=== PATIENT | male | born 1960 | race Asian ===

== ENCOUNTER → 2022-10-19 | Outpatient (CLI) | payer SELFPAY ==
[2022-10-19 14:49] LABS: BASOPHILS ABSOLUTE AUTO 0.04 K/mm3 (0.00-0.23); BASOPHILS PERCENT AUTO 1 % (0-2); EOSINOPHILS PERCENT AUTO 2 % (0-6); Hematocrit 42.7 % (37.0-53.0); Hemoglobin 15.8 g/dL (13.5-17.5); IMMATURE GRAN ABSOLUTE AUTO 0.02 K/mm3 (0.00-0.10); IMMATURE GRAN PERCENT AUTO 1 % (0-1); LYMPHOCYTES ABSOLUTE AUTO 1.64 K/mm3 (0.84-5.20); LYMPHOCYTES PERCENT AUTO 40 % (21-46); MONOCYTES ABSOLUTE AUTO 0.32 K/mm3 (0.16-1.47); MONOCYTES PERCENT AUTO 8 % (4-13); Mean Corpuscular HGB 30.4 pg (26.0-34.0); Mean Corpuscular Volume 82 fL (80-100); Mean Platelet Volume 10.2 fL (9.1-12.4); NEUTROPHILS ABSOLUTE AUTO 1.99 K/mm3 (1.96-9.15); NEUTROPHILS PERCENT AUTO 48 % (41-73); Platelet Count 242 K/mm3 (150-400); RDW Coefficient Variation 11.9 % (11.7-14.2); RDW Standard Deviation 35.5 fL (35.1-46.3); White Blood Cell Count 4.11 K/mm3 (4.00-11.30)
[2022-10-19 15:06] LABS: Alanine Aminotransfer (ALT/SGP 39 U/L (12-78); Albumin/Globulin Ratio 1.1 (0.8-1.8); Alk Phos 80 U/L (50-136); Anion Gap 6 mmol/L (6-16); Aspartate Aminotrans (AST/SGOT 23 U/L (12-37); Blood Urea Nitrogen 15 mg/dL (8-24); Bun/Creatinine Ratio 19.5 (12.0-20.0); CO2, Blood 26 mmol/L (21-32); Calcium, Blood 8.6 mg/dL (8.5-10.1); Chloride, Blood 104 mmol/L (98-108); Cholesterol 221 mg/dL (50-200); Creatinine, Blood 0.77 mg/dL (0.60-1.20); Globulin, Blood 3.5 g/dL (2.2-4.0); Glomerular Filtration Rate 101 (60-); Glucose, Blood 221 mg/dL (70-99); HDL Cholesterol 44 mg/dL (>39); LDL/HDL RATIO 3.4; Low Density Lipoprotein Chol 151 mg/dL (0-110); Potassium, Blood 3.9 mmol/L (3.5-5.5); Sodium, Blood 136 mmol/L (136-145); Total Protein, Blood 7.5 g/dL (6.4-8.2); Triglycerides 130 mg/dL (30-160); Very Low Density Lipoprot Chol 26 mg/dL (6-32)
== END | disposition home or self-care (01) ==
LOC: LAB SHORT 12:48
PROVIDERS: Family Medicine
DX: Z13.6 Encounter for screening for cardiovascular disorders (principal); I10 Essential (primary) hypertension
CPT/HCPCS: 80053; 80061; 84443; 85025

== ENCOUNTER 2022-12-26 01:30 | Emergency (ER) | payer OTHER ==
[~2022-12-26] VITALS: Ht 154.9 cm; Wt 63.5 kg
[2022-12-26] MEDS ORDERED: Robaxin750 MG PO (04:16)
== END 2022-12-26 04:23 | disposition home or self-care (01) ==
LOC: ER 01:30
DX: S09.90XA Unspecified injury of head, initial encounter (principal); S16.1XXA Strain of muscle, fascia and tendon at neck level, initial encounter; S40.011A Contusion of right shoulder, initial encounter; I10 Essential (primary) hypertension; V49.40XA Driver injured in collision with unspecified motor vehicles in traffic accident, initial encounter
CPT/HCPCS: 70450; 72125; A9270

== ENCOUNTER → 2024-05-18 | Outpatient (CLI) | payer MEDICARE, BC ==
[~2024-05-18] MED LIST: Robaxin750 MG PO
[2024-05-18 14:35] LABS: Hemoglobin 14.1 g/dL (13.5-17.5); Mean Corpuscular HGB 30.4 pg (26.0-34.0); Mean Corpuscular HGB Conc 34.4 g/dL (31.5-36.5); Mean Corpuscular Volume 88 fL (80-100); Mean Platelet Volume 10.8 fL (9.1-12.4); Platelet Count 223 K/mm3 (150-400); RDW Coefficient Variation 12.3 % (11.7-14.2); RDW Standard Deviation 39.4 fL (35.1-46.3); Red Blood Cell Count 4.64 M/mm3 (4.30-5.90); White Blood Cell Count 4.16 K/mm3 (4.00-11.30)
[2024-05-18 14:54] LABS: Alanine Aminotransfer (ALT/SGP 32 U/L (12-78); Albumin, Blood 4.2 g/dL (3.4-5.0); Albumin/Globulin Ratio 1.3 (0.8-1.8); Alk Phos 78 U/L (50-136); Anion Gap 7 mmol/L (3-11); Aspartate Aminotrans (AST/SGOT 26 U/L (12-37); Bilirubin, Total 0.9 mg/dL (0.1-1.0); Blood Urea Nitrogen 19 mg/dL (8-24); Bun/Creatinine Ratio 20.5 (12.0-20.0); CHOL/HDL RATIO 3.8; CO2, Blood 30 mmol/L (21-32); Chloride, Blood 104 mmol/L (98-108); Cholesterol 210 mg/dL (50-200); Creatinine, Blood 0.93 mg/dL (0.60-1.20); Globulin, Blood 3.3 g/dL (2.2-4.0); Glomerular Filtration Rate 91 (60-); Glucose, Blood 136 mg/dL (70-99); HDL Cholesterol 55 mg/dL (>39); LDL/HDL RATIO 2.6; Low Density Lipoprotein Chol 144 mg/dL (0-110); Potassium, Blood 4.5 mmol/L (3.5-5.5); Sodium, Blood 136 mmol/L (136-145); Total Protein, Blood 7.5 g/dL (6.4-8.2); Triglycerides 57 mg/dL (30-160); Very Low Density Lipoprot Chol 11 mg/dL (6-32)
== END | disposition home or self-care (01) ==
LOC: LAB 13:25 → LAB SHORT 13:25
PROVIDERS: Internal Medicine
DX: E78.00 Pure hypercholesterolemia, unspecified (principal)
CPT/HCPCS: 80053; 80061; 85027

== ENCOUNTER 2025-10-01 09:16 | Day surgery (SDC) | payer MEDICARE, BC ==
[2025-10-01] VITALS (15 sets, daily range): BP systolic 94–137; BP diastolic 61–84
[~2025-10-01] VITALS: Ht 152.4 cm; Wt 61.9 kg
[~2025-10-01 09:16] MED LIST changes: +ALEVAZOL56.7 G1 TOP
--- NOTE | 2025-10-01 09:44 | NUR ---
Ambulatory in Day Surgery. History, Chart, Medications and Allergies reviewed before start of procedure. Patient confirms NPO status and agrees with scheduled surgery. Pre-Op teaching done. Pt verbalizes understanding. Patient States Post-Procedure ride home has been arranged.
--- NOTE | 2025-10-01 09:54 | NUR ---
10/01/25 0954 Marcos Hairston CONFIRMED AND REVIEWED H&P, MEDCICATIONS, ALLERGIES, MEDICAL HISTORY, RESPIRATORY HISTORY, VITAL SIGNS, 3-LEAD EKG, CONSENTS, AND PHYSICIAN ORDERS. PATIENT CONFIRMS NPO STATUS AND AGREES WITH SCHEDULED PROCEDURE. MONITOR INTACT WITH CONTINUOUS PULSE OXIMETRY, CAPNOGRAPHY, 3-LEAD EKG, INTERMITTENT BP. SUPPLEMENTAL O2 TO BE TITRATED THROUGHOUT PROCEDURE TO MAINTAIN O2 SATURATION ABOVE 90%. PATIENT DETERMINED TO BE ASA APPROPRIATE FOR PROPOFOL SEDATION PRIOR TO START OF PROCEDURE BY DR. COVARRUBIAS.
== END 2025-10-01 23:00 | disposition home or self-care (01) ==
LOC: ORSCMMR 09:16
PROVIDERS: Surgery
PROC: 0DBH8ZX Excision of Cecum, Via Natural or Artificial Opening Endoscopic, Diagnostic (ICD-10-PCS; principal; 2025-10-01 10:30)
PROC: 0DBK8ZX Excision of Ascending Colon, Via Natural or Artificial Opening Endoscopic, Diagnostic (ICD-10-PCS; principal; 2025-10-01 10:30)
DX: Z12.11 Encounter for screening for malignant neoplasm of colon (principal); D12.0 Benign neoplasm of cecum; D12.2 Benign neoplasm of ascending colon; K64.0 First degree hemorrhoids; I10 Essential (primary) hypertension; E11.9 Type 2 diabetes mellitus without complications
CPT/HCPCS: 82947; 88305; J2704; J7120